=== PATIENT | female | born 1970 | race African-American/Black ===

== ENCOUNTER → 2017-06-04 | Outpatient (CLI) | payer BC, OTHER | LOC: CAT 10:36 | DX: J32.0 Chronic maxillary sinusitis (principal) ==

== ENCOUNTER 2018-02-27 20:50 | Inpatient (IN) | payer BC, OTHER ==
[~2018-02-27] VITALS: Ht 165.1 cm; Wt 80.7 kg
--- NOTE | ~2018-02-27 | EKG ---
[address] [place] [address] ELECTROCARDIOGRAM REPORT Name: RIGO WELCH Room #: 213-P ADM IN M.R.#: [id number] Admission: 02/27/18 Attend Phys: Vernon Abdul MD Discharge: Date of : 74 Report #: [id number] THIS REPORT FOR: //name// [facility] ED Test Date: 2018-02-28 Test Time: 00:13:59 Pat Name: RIGO WELCH Department: Room: 213 Gender: F Medical Support Assistant: angel : 1970 Requested By: Alicia Osborne Order Number: [id number] MD: Kris Salazar Measurements Intervals [place] Rate: 78 P: 14 [place]: 183 QRS: 91 QRSD: 88 T: 9 QT: 412 QTc: 470 Interpretive Statements Sinus rhythm Multiple ventricular premature complexes Borderline right axis deviation Low voltage, precordial leads No previous ECG available for comparison Electronically Signed On 02-28-2018 9:19:33 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
--- NOTE | ~2018-02-27 | CATHLAB ---
[facility] [address] [place] [address] INVASIVE PROCEDURE REPORT Name: RIGO WELCH Room #: 213-P ADM IN M.R.#: [id number] Admission: 02/27/18 Attend Phys: Vernon Abdul MD Discharge: Date of : 74 Date of Service: 02/28/18 1716 Report #: [id number] THIS REPORT FOR: //name// APPROVED REPORT Study performed: 02/28/2018 10:26:41 Patient Details Patient Status: In-Patient Room #: The patient is a 47 year-old female Event Personnel Kris Salazar Director Clinical Information Services, Mirian Puga Mahmood, Amber Scrub, Kline, Tiffany RN lead pressman Performed Art Access - R femoral artery* Left Heart Cath w/or w/o Coronaries [id number] [facility] Hemostasis with Manual pressure 80227 Initial Mod Sed Same Phys/QHP Gr5y [id number] supervision of conscious sedation Indication Chest pain, Elevated troponin Procedure Narrative The patient was brought urgently to the Cardiac Catheterization Laboratory and was prepped and draped in a sterile manner. The Right Groin^ was infiltrated with 1% Lidocaine subcutaneous anesthesia. A PINNACLE 4FR Sheath #[id number] sheath was inserted into the RFA^. Coronary angiography was performed using coronary diagnostic catheters. The right coronary system was accessed and visualized with a JR 4 catheter. The left coronary system was accessed and visualized with a JL 4 catheter. The left ventricle was accessed and visualized with a Pigtail catheter. Left ventricular/Aortic Valve gradient assessed via catheter pullback. Hemostasis was obtained with manual pressure following sheath removal without any complications. The patient tolerated the procedure well and there were no complications associated with the procedure. There was no hematoma. Intraoperative Conscious Sedation Sedation start time: 10:38 Case end Time: 11:02 Versed 2 mg Fluoro Time: 1.30 minutes [facility] [place] [address] INVASIVE PROCEDURE REPORT Name: RIGO WELCH Room #: 213-P [facility] IN ..#: [id number] Admission: 02/27/18 Attend Phys: Vernon Abdul MD Discharge: Date of : 74 Date of Service: 02/28/18 1716 Report #: [id number] Dose: DAP 1416 cGycm2 201 mGy Contrast Type and Amount: Visipaque 45 ml Coronary Angiography The patient's coronary anatomy is right dominant. Diagnostic Cath Left Main Normal origin and caliber bifurcates that anterior descending left circumflex free of high-grade disease LAD Small-caliber type 2 vessel which courses in the anterior interventricular sulcus tapering towards the apex free of high-grade disease. In the middle third of the LAD bifurcates into cold vessels as they extend towards the apex. No high-grade lesions are noted Diagonal 1 Small-caliber vessel without significant high-grade lesions noted Circumflex Small-caliber nondominant vessel coursing the AV groove giving rise to marginal branches free of high-grade disease OM1 Wall marginal branches without significant high-grade lesions noted Right Coronary Moderate caliber vessel of normal origin without significant obstructive lesions noted. He gives a small insignificant RV marginal branches coursing posteriorly in the AV groove to the crux of the heart where a posterior descending artery arises. Terminal RCA small caliber vessels identified R PDA Small-caliber vessel without significant high-grade lesions noted Left Ventriculography Left Ventriculography was not performed. Hemodynamics The aortic pressure is 134/88 mmHg with a mean of 107 mmHg. The left ventricular pressure is 158/6 mmHg with a mean of mmHg. The left ventricular end diastolic pressure is 25 mmHg. Conclusion 1. Normal coronary arteries 2. Normal hemodynamics [facility] [email or web address] [address] INVASIVE PROCEDURE REPORT Name: RIGO WELCH Room #: 213-P [facility] IN [facility]#: [id number] Admission: 02/27/18 Attend Phys: Vernon Abdul MD Discharge: Date of : 74 Date of Service: 02/28/181715 Report #: [id number] Recommendations Cardiac Risk Reduction Program <ELECTRONICALLY SIGNED> By: Kris Salazar MD 02/28/181715 15 1716 Kris Salazar MD /INF
--- NOTE | ~2018-02-27 | HC ---
[facility] [place] [address] CONSULTATION Name: RIGO WELCH Room #: 213-P [facility] IN M.R.#: [id number] Admission: 02/27/18 Attend Phys: Vernon Abdul MD Discharge: Date of : 74 Report #: [id number] THIS REPORT FOR: //name// [facility]: [facility] HISTORY OF PRESENT ILLNESS: This is a very pleasant 47-year-old female patient without prior history of coronary artery disease, who presented after developing substernal discomfort. The patient has been doing fairly well, shopping without any symptoms when she went to the restroom. When she emerged, she had a substernal heaviness and pressure sensation which was constant. This radiated into the left shoulder, back and arm, which is what concerning to her. She stated that it resolved completely, except for the left arm, for which she then noted some numbness and tingling. The patient had some nausea and one episode of emesis with this. She denied any significant palpitations, syncope or near syncope. She has never had any prior history of coronary artery disease and had done activities without problems. She does carry a significant family history, though, of coronary artery disease as well as other cardiovascular issues. ALLERGIES: PENICILLIN, WHICH CAUSES THROAT TO SWELL. MEDICATIONS: Medications at home are losartan and hydrochlorothiazide. PAST MEDICAL HISTORY: Significant for hypertension. PAST SURGICAL HISTORY: Significant for: 1. . 2. Hysterectomy. FAMILY HISTORY: Significant for diabetes, hypertension, chronic kidney disease and heart disease. SOCIAL HISTORY: The patient does not smoke, does not use recreational drugs and is a social drinker. REVIEW OF SYSTEMS: Except for symptoms previously mentioned and those commensurate with comorbid state, the 10-point review of system is negative. ELECTROCARDIOGRAM: Normal sinus rhythm, nonspecific ST-T wave changes. Subsequent ECG demonstrates normal sinus rhythm, no acute ST segment changes with occasional PVCs. LABORATORY DATA: Laboratory demonstrates troponin of 1.22. BUN and creatinine are 18.1 and 1.0. Potassium is 3.1. H and H are 12.7 and 37.7 with a platelet count of 250,000. PHYSICAL EXAMINATION: [facility] [address] [place] [address] CONSULTATION Name: RIGO WELCH Room #: 213-P [facility] IN .R.#: [id number] Admission: 02/27/18 Attend Phys: Vernon Abdul MD Discharge: Date of : 74 Report #: [id number] GENERAL: Well-developed and well-nourished female, resting comfortably, in no distress. VITAL SIGNS: Noted and reviewed in the chart. HEENT: Normocephalic, atraumatic. Pupils are equal, round, reactive to light and accommodation. Extraocular muscles are intact. Sclerae and conjunctivae are anicteric. NECK: JVD is normal. Carotid upstrokes are bilaterally symmetrical. No bruits are heard. No thyromegaly. No lymphadenopathy. LUNGS: Clear to auscultation. No wheezes, rhonchi or crackles. No CVA tenderness. CARDIAC: Demonstrates a regular rhythm. Normal first and second heart sounds. No ventricular or atrial gallops, no rubs noted. No murmurs. No lifts or heaves, PMI normal. ABDOMEN: Soft, nontender, nondistended. Normal bowel sounds. EXTREMITIES: Without cyanosis, clubbing or edema. Distal pulses are intact. DTR symmetrical. NEUROLOGIC: Cranial nerves 2-12 are grossly normal and symmetrical. PSYCHIATRIC: Alert, oriented with normal affect. SKIN: Warm and dry. IMPRESSION: 1. Chest discomfort, which is relieved now, but has significant elevation of troponins. This could be noncardiac, but in view of risk factors and in view of elevated troponin, unstable angina and non-STEMI, this needs to be considered. I discussed invasive versus noninvasive approach and she wants definitive diagnosis. In view of this, I am going to proceed with cardiac catheterization. The risks, complications and alternatives to cath, angioplasty and conscious sedation have been discussed with the patient. She voices understanding and wishes to proceed. 2. Hypertension, which has been very stable at home. Continue with medical regimen at this time. 3. Acid peptic disease. May want to do a proton pump inhibitor if catheterization is negative. <ELECTRONICALLY SIGNED> By: Kris Salazar MD 02/28/18 2119 0941 1027 Kris Salazar MD /nt
--- NOTE | ~2018-02-27 | EKG ---
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
--- NOTE | ~2018-02-27 | 2DMMODE ---
[facility] [address] [place] [address] 2 D/M-MODE ECHOCARDIOGRAM Name: RIGO WELCH Room #: 213-P [facility] IN [facility]#: [id number] Admission: 02/27/18 Attend Phys: Vernon Abdul MD Discharge: Date of : 74 Date of Service: 02/28/18 1629 Report #: [id number] THIS REPORT FOR: //name// APPROVED REPORT Study performed: 02/28/2018 11:54:18 EXAM: Comprehensive 2D, Doppler, and color-flow Echocardiogram Patient Location: In-Patient Room #: 213 Status: routine BSA: 1.95 HR: 68 bpm BP: 141/77 mmHg Other Information Study Quality: Good 2D Dimensions IVSd: 8.02 (7-11mm) LVOT Diam: 20.74 (18-24mm) LVDd: 51.74 mm PWd: 8.23 (7-11mm) Ascending Ao: 23.11 (22-36mm) LVDs: 38.02 (25-40mm) Left Atrium: 23.72 (27-40mm) Aortic Root: 29.18 mm IVC: 2.10 mm Volumes Left Atrial Volume (Systole) Single Plane 4CH: 26.07 mL Single Plane 2CH: 49.01 mL Aortic Valve AoV Peak Sy.: 1.24 m/s AO Peak Gr.: 6.44 mmHg LVOT Max P.49 mmHg LVOT Max V: 0.93 m/s MIKA Vmax: 2.54 cm2 Mitral Valve E/A Ratio: 1.3 MV Decel. Time: 244.06 ms MV E Max Sy.: 0.77 m/s MV A Sy.: 0.61 m/s MV PHT: 70.78 ms IVRT: 110.73 ms Pulmonary Valve [facility] [place] [place] [address] 2 D/M-MODE ECHOCARDIOGRAM Name: RIGO WELCH Room #: 213-P [facility] IN .R.#: [id number] Admission: 02/27/18 Attend Phys: Vernon Abdul MD Discharge: Date of : 74 Date of Service: 02/28/18 1629 Report #: [id number] PV Peak Sy.: 0.93 m/s PV Peak Gr.: 3.46 mmHg Pulmonary Vein P Vein S: 0.45 m/s P Vein A: 0.26 m/s P Vein D: 0.31 m/s P Vein A Dur.: 159.2 msec P Vein S/D Ratio: 1.45 Tricuspid Valve TR Peak Sy.: 2.06 m/s RAP Estimate: 3.00 mmHg TR Peak Gr.: 16.93 mmHg PA Pressure: 20.00 mmHg Left Ventricle The left ventricle is normal size. There is normal LV segmental wall motion. There is normal left ventricular wall thickness. Left ventricular systolic function is borderline. LVEF is approx 50%. Grade II - pseudonormal filling dynamics. Right Ventricle Right ventricle is borderline dilated. The right ventricular systolic function is normal. Atria The left atrium size is normal. The right atrium size is normal. Aortic Valve The aortic valve is normal in structure. Trace aortic regurgitation. Mitral Valve The mitral valve is normal in structure. Trace mitral regurgitation. Tricuspid Valve The tricuspid valve is normal in structure. Trace tricuspid regurgitation. Pulmonic Valve Pulmonic valve is not well visualized. Trace pulmonic regurgitation. Great Vessels The aortic root is normal in size. IVC is normal in size and collapses >50% with inspiration. [facility] [address] [place] [address] 2 D/M-MODE ECHOCARDIOGRAM Name: RIOG WELCH Room #: 213-P [facility] IN .R.#: [id number] Admission: 02/27/18 Attend Phys: Vernon Abdul MD Discharge: Date of : 74 Date of Service: 02/28/18 1629 Report #: [id number] Pericardium There is a trace pericardial effusion. Critical Notification Critical Value: No <Conclusion> The left ventricle is normal size. LVEF is approx 50%. Right ventricle is borderline dilated. The aortic valve is normal in structure. Trace aortic regurgitation. The mitral valve is normal in structure. Trace mitral regurgitation. The tricuspid valve is normal in structure. Trace tricuspid regurgitation. Pulmonic valve is not well visualized. Trace pulmonic regurgitation. There is a trace pericardial effusion. <ELECTRONICALLY SIGNED> By: Kris Salazar MD 02/28/181628 28 28 Kris Salazar MD /INF
--- NOTE | ~2018-02-27 | EKG ---
[address] [address] ELECTROCARDIOGRAM REPORT Name: RIGO WELCH Room #: 213-P ADM IN M.R.#: [id number] Admission: 02/27/18 Attend Phys: Vernon Abdul MD Discharge: Date of : 74 Report #: [id number] THIS REPORT FOR: //name// [facility] ED Test Date: 2018-02-27 Test Time: 21:00:45 Pat Name: RIGO WELCH Department: Room: 213 Gender: F Medical Assistant: IRVING : 1970 Requested By: Alicia Osborne Order Number: [id number] MD: Kris Salazar Measurements Intervals [place] Rate: 68 P: 10 [place]: 188 QRS: -31 QRSD: 90 T: 43 QT: 425 QTc: 453 Interpretive Statements Sinus rhythm Left axis deviation No previous ECG available for comparison Electronically Signed On 02-28-2018 9:19:04 MOBILE SECURITY 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
[2018-02-27 20:50] VITALS: BP 140/92
[2018-02-27] MEDS ORDERED: COZAAR 25 MG TA25 M1 PO (21:08)
[2018-02-27] MEDS ORDERED: HYDROCHLOROTHIA25 M1 PO (21:09)
[2018-02-27 21:25] LABS: ABSOLUTE NEUTROPHILS 11.3 thou/uL (1.4-8.2); BASOPHILS 0.5 % (0.0-2.0); EOSINOPHILS 0.1 % (0.0-3.0); HEMATOCRIT 37.7 % (37.0-47.0); HEMOGLOBIN 12.7 gm/dL (12.0-15.0); LYMPHOCYTES 13.2 % (24.0-44.0); MCH 28.1 pg (26.0-34.0); MCHC 33.6 g/dL (28.0-37.0); MCV 83.7 fL (80.0-100.0); MONOCYTES 3.7 % (1.0-8.0); PLATELET COUNT 250 thou/uL (150-400); POLYS 82.5 % (36.0-66.0); RBC 4.51 mil/uL (4.20-5.00); RDW 13.6 % (10.5-14.5); WBC 13.7 thou/uL (4.0-11.0)
[2018-02-27 21:31] LABS: CALCIUM 9.2 mg/dL (8.5-10.1); POTASSIUM 3.1 mmol/L (3.5-5.1)
[2018-02-27 21:42] LABS: TROPONIN-I 1.22 ng/mL (<0.06)
[2018-02-27 23:31] VITALS: BP 120/78
[2018-02-28 01:00] VITALS: BP 135/82
[2018-02-28 01:15] VITALS: BP 148/79
[2018-02-28 01:20] LABS: HEMOGLOBIN 12.7 gm/dL (12.0-15.0); MCH 27.9 pg (26.0-34.0); MCHC 33.3 g/dL (28.0-37.0); MCV 83.9 fL (80.0-100.0); RBC 4.53 mil/uL (4.20-5.00); RDW 13.6 % (10.5-14.5); WBC 14.6 thou/uL (4.0-11.0)
[2018-02-28 01:33] LABS: PROTIME 10.8 Seconds (9.3-11.4)
[2018-02-28 03:34] VITALS: BP 142/95
[2018-02-28 06:19] LABS: HEMATOCRIT 38.4 % (37.0-47.0); HEMOGLOBIN 12.9 gm/dL (12.0-15.0); MCH 27.9 pg (26.0-34.0); MCHC 33.5 g/dL (28.0-37.0); MCV 83.3 fL (80.0-100.0); RBC 4.61 mil/uL (4.20-5.00); RDW 13.6 % (10.5-14.5); WBC 13.4 thou/uL (4.0-11.0)
[2018-02-28 06:27] LABS: CALCIUM 9.4 mg/dL (8.5-10.1); CREATININE 0.8 mg/dL (0.6-1.0); POTASSIUM 3.7 mmol/L (3.5-5.1)
[2018-02-28 07:09] LABS: CHOLESTEROL 215 mg/dL (<200); HDL CHOLESTEROL 83 mg/dL (>40); LDL CHOLESTEROL 122 mg/dL (<100); TC:HDL 2.6 Ratio (Not establshd); TRIGLYCERIDE 51 mg/dL (<150); VLDL 10 mg/dL (<40)
[2018-02-28 08:52] VITALS: BP 141/77
[2018-02-28 19:41] VITALS: BP 119/79
[2018-02-28 23:09] LABS: GLYCOHEMOGLOBIN (HGB A1C) 5.8 % (4.8-5.6)
[2018-03-01 04:21] VITALS: BP 120/76
[2018-03-01 07:33] VITALS: BP 129/84
[2018-03-01 07:46] LABS: CALCIUM 9.4 mg/dL (8.5-10.1); POTASSIUM 3.8 mmol/L (3.5-5.1)
[2018-03-01 11:56] VITALS: BP 121/85
[2018-03-01 15:50] VITALS: BP 125/79
[2018-03-01 19:50] VITALS: BP 114/84
[2018-03-02 06:15] VITALS: BP 117/78
[2018-03-02 08:23] VITALS: BP 128/83
[2018-03-02] MEDS ORDERED: ASPIR 8181 MG PO (08:51)
[2018-03-02] MEDS ORDERED: AMLODIPINE BESY10 MG PO (08:51)
[2018-03-02] MEDS ORDERED: PROTONIX40 M2 PO (08:52)
[2018-03-02 09:55] VITALS: BP 128/83
[2018-03-02 11:25] VITALS: BP 113/74
== END 2018-03-02 13:40 | disposition home or self-care (01) | DRG 282 ==
LOC: ER 20:50 → EROBS 23:17 → 2N 02-28 01:10
PROVIDERS: Emergency Medicine; Hospitalist; Nurse Practitioner Family
PROC: B211YZZ Fluoroscopy of Multiple Coronary Arteries using Other Contrast (ICD-10-PCS; principal; 2018-02-28)
PROC: 4A023N7 Measurement of Cardiac Sampling and Pressure, Left Heart, Percutaneous Approach (ICD-10-PCS; principal; 2018-02-28)
DX: I21.4 Non-ST elevation (NSTEMI) myocardial infarction (principal); K30 Functional dyspepsia; I10 Essential (primary) hypertension; Z90.710 Acquired absence of both cervix and uterus; Z88.0 Allergy status to penicillin; Z83.3 Family history of diabetes mellitus; Z82.49 Family history of ischemic heart disease and other diseases of the circulatory system; Z84.1 Family history of disorders of kidney and ureter; Z79.82 Long term (current) use of aspirin; Z79.899 Other long term (current) drug therapy
CPT/HCPCS: 10081

== ENCOUNTER 2018-03-09 12:39 | Emergency (ER) | payer BC, OTHER ==
[~2018-03-09] VITALS: Ht 165.1 cm; Wt 77.1 kg
[~2018-03-09 12:39] MED LIST: AMLODIPINE BESY10 MG PO; ASPIR 8181 MG PO; COZAAR 25 MG TA25 M1 PO; HYDROCHLOROTHIA25 M1 PO; PROTONIX40 M2 PO
[2018-03-09 15:04] VITALS: BP 136/83
== END 2018-03-09 15:11 | disposition home or self-care (01) ==
LOC: ER 12:39
DX: S86.812A Strain of other muscle(s) and tendon(s) at lower leg level, left leg, initial encounter (principal); X58.XXXA Exposure to other specified factors, initial encounter; Y93.89 Activity, other specified; Y92.89 Other specified places as the place of occurrence of the external cause; Y99.8 Other external cause status